=== PATIENT | female | born 1990 | race American Indian/Alaskan Native ===

== ENCOUNTER 2017-03-24 15:41 | Emergency (ER) | payer SELFPAY ==
[2017-03-24 16:46] VITALS: BP 137/90
== END 2017-03-24 20:10 | disposition left against medical advice (07) ==
LOC: ED 15:41
DX: R05 Cough (principal); R61 Generalized hyperhidrosis; Z53.21 Procedure and treatment not carried out due to patient leaving prior to being seen by health care provider